=== PATIENT | female | born 1995 | race Caucasian/White ===

== ENCOUNTER → 2017-04-22 | Outpatient (CLI) | payer OTHER ==
[~2017-04-22] MED LIST: ALBUAER19 INH; AMT50 PO; ATV/1 PO; CYM/60 PO; INDO-22 PO; IUD'IUD; MULT-897 PO; OXYC-57 PO; OXYC-787 PO; PROM25TA9 PO
[2017-04-22 12:51] LABS: URINE APPEARANCE CLEAR (CLEAR); URINE BILIRUBIN NEG (NEG); URINE COLOR DK YELLOW; URINE EPITHELIAL CELL AUTO >30 /lpf (0-5); URINE NITRITE NEG (NEG); UROBILINOGEN NEG (NEG); ZZUR CULT IF INDIC CLEAN CATCH YES
[2017-04-22 12:54] LABS: MANUAL MICROSCOPIC REQUIRED? NO; REVIEW REQ? YES
== END | disposition home or self-care (01) ==
LOC: C.LAB1850 12:00
PROVIDERS: ATTEND Internal Medicine Infectious Disease
DX: N39.0 Urinary tract infection, site not specified (principal)

== ENCOUNTER → 2017-08-27 | Outpatient (CLI) | payer OTHER ==
[2017-08-27 17:53] LABS: URINE APPEARANCE CLOUDY (CLEAR); URINE BILIRUBIN NEG (NEG); URINE COLOR DK YELLOW; URINE EPITHELIAL CELL AUTO >30 /lpf (0-5); URINE NITRITE NEG (NEG); URINE SPECIFIC GRAVITY 1.028 (1.000-1.030); UROBILINOGEN NEG (NEG)
[2017-08-27 17:59] LABS: MANUAL MICROSCOPIC REQUIRED? NO; REVIEW REQ? YES
== END ==
LOC: C.LABMFLN 11:56
PROVIDERS: ATTEND Urology
DX: N39.0 Urinary tract infection, site not specified (principal)

== ENCOUNTER → 2017-10-27 | Outpatient (CLI) | payer OTHER ==
--- NOTE | 2017-10-27 10:42 | DIAGNOSTIC IMAGING REPORT ---
PELVIC COMPLETE NON OB HISTORY: 22 years-old Female RLQ PAIN acute right lower quadrant abdominal pain COMPARISON: CT abdomen and pelvis 12/11/2015 TECHNIQUE: Multiple real-time sonographic images of the deep pelvic structures were obtained transabdominally and transvaginally assessing grayscale appearance, color and spectral flow FINDINGS: TRANSABDOMINAL: Anteflexed uterus measures 5.6 x 2.3 cm. TRANSVAGINAL: Anteflexed uterus measures 6.5 x 2.7 x 4.1 cm. No myometrial mass lesions identified. Endometrium is homogeneous, 4 mm. Shunt catheter is noted looping within the pelvis anterior to uterus. Previously noted intrauterine device is not seen. Right ovary measures 3.1 x 2.1 x 1.9 cm and is unremarkable without evidence of torsion or focal mass. Follicles and arterial inflow noted within the right ovary. The left ovary measures 3.4 x 1.9 x 1.8 cm and is also unremarkable with arterial inflow and follicles noted. There is trace free fluid within the cul-de-sac. IMPRESSION: 1. Unremarkable sonographic appearance of the uterus, endometrium and bilateral ovaries without evidence of torsion. 2. Trace free pelvic fluid, likely physiologic. 3. Intrauterine device no longer identified. The above report was generated using voice recognition software. It may contain grammatical, syntax or spelling errors. Electronically signed by: Jason López M.D. 10/27/2017 10:41 AM Dictated Date/Time: 10/27/2017 10:38 AM
== END | disposition home or self-care (01) ==
LOC: C.ULTR 09:41
PROVIDERS: ATTEND Registered Nurse
DX: R10.31 Right lower quadrant pain (principal)

== ENCOUNTER → 2017-12-03 | Outpatient (CLI) | payer OTHER ==
--- NOTE | 2017-12-03 13:48 | DIAGNOSTIC IMAGING REPORT ---
NUCLEAR GASTRIC EMPTYING STUDY HISTORY: early satiety. COMPARISON: None. TECHNIQUE: Following the oral administration of 1.1 mCi of technetium 99m sulfur colloid in egg sandwich and 8 ounces of water, static abdominal images are obtained anteriorly and posteriorly at 0 minutes, 1 hour, 2 hour, and 4 hour time intervals. Gastric emptying was calculated utilizing the geometric mean method. FINDINGS: There is approximately 80% activity remaining at the 1 hour time interval (normal is less than 90%), 76% remaining at the 2 hour time interval (normal is less than 60%), and 33% activity remaining at the 4 hour time interval (normal is less than 10%). IMPRESSION: Delayed gastric emptying as described above. Electronically signed by: Guanakito Villegas M.D. 12/03/2017 1:46 PM Dictated Date/Time: 12/03/2017 1:45 PM
== END | disposition home or self-care (01) ==
LOC: C.NUCL 09:06
PROVIDERS: ATTEND Family Medicine
DX: R68.81 Early satiety (principal); K31.84 Gastroparesis

== ENCOUNTER → 2017-12-17 | Outpatient (CLI) | payer OTHER ==
[2017-12-17 16:38] LABS: BASO % 0.8 %; BASO ABS # 0.04 K/uL (0-0.2); EOS % 0.8 %; EOS ABS # 0.04 K/uL (0-0.5); HEMATOCRIT 40.5 % (37-47); HEMOGLOBIN 14.2 g/dL (12.0-16.0); IG# 0.01 K/uL (0.00-0.02); LYMPH % 46.3 %; LYMPH ABS # 2.32 K/uL (1.2-3.4); MEAN CELL VOLUME 87.5 fL (80-100); MEAN CORPUSCULAR HEMOGLOBIN 30.7 pg (25-34); MEAN CORPUSCULAR HGB CONC 35.1 g/dl (32-36); MEAN PLATELET VOLUME 9.3 fL (7.4-10.4); MONO % 10.6 %; MONO ABS # 0.53 K/uL (0.11-0.59); NEUT % 41.3 %; NEUT ABS # 2.07 K/uL (1.4-6.5); PLATELET COUNT 292 K/uL (130-400); RED CELL DISTRIBUTION WIDTH CV 13.2 % (11.5-14.5); RED CELL DISTRIBUTION WIDTH SD 42.4 fL (36.4-46.3); WHITE BLOOD COUNT 5.01 K/uL (4.8-10.8)
[2017-12-17 17:00] LABS: ALBUMIN 4.4 gm/dl (3.4-5.0); ALT/SGPT 19 U/L (12-78); AST/SGOT 13 U/L (15-37); BLOOD UREA NITROGEN 8 mg/dl (7-18); CARBON DIOXIDE 26 mmol/L (21-32); CREATININE 0.66 mg/dl (0.60-1.20); GLUCOSE 79 mg/dl (70-99); LIPASE 112 U/L (73-393); POTASSIUM 3.6 mmol/L (3.5-5.1); SODIUM 136 mmol/L (136-145)
[2017-12-17 17:12] LABS: ALKALINE PHOSPHATASE 75 U/L (45-117); TOTAL PROTEIN 8.1 gm/dl (6.4-8.2); TRANSFERRIN 337 mg/dl (200-360)
[2017-12-18 06:45] LABS: HEMOGLOBIN A1C 4.9 % (4.5-5.6)
== END | disposition home or self-care (01) ==
LOC: C.LAB 15:42
PROVIDERS: ATTEND Registered Nurse
DX: Z79.891 Long term (current) use of opiate analgesic (principal); R63.4 Abnormal weight loss